=== PATIENT | male | born 1960 | race Caucasian/White ===

== ENCOUNTER 2022-07-29 20:41 | Inpatient (IN) | payer MEDICAID ==
[2022-07-29] MEDS ORDERED: Sodium Chloride 0.9% 10 ML Syringe FLUSH PRN (20:51)
[2022-07-29] MEDS ORDERED: Lactated Ringers 1,000 ML IV SCH ×2 (21:00→22:15)
[2022-07-29 21:05] LABS: BASOPHILS PERCENT AUTO 0.2 % (0.1-1.3); HEMATOCRIT 42.4 % (38.4-49.7); HEMOGLOBIN 14.7 g/dL (12.9-16.9); IMMATURE GRAN ABSOLUTE AUTO 0.07 K/uL (0.00-0.23); IMMATURE GRAN PERCENT AUTO 0.8 % (0.0-0.7); LYMPHOCYTES PERCENT AUTO 11.9 % (11.4-47.7); MEAN CORPUSCULAR HEMOGLOBIN 34.6 pg (31.6-35.5); MEAN CORPUSCULAR HGB CONC 34.7 g/dL (31.6-35.5); MEAN CORPUSCULAR VOLUME 99.8 fL (81.4-99.0); MONOCYTES ABSOLUTE AUTO 0.77 K/uL (0.20-0.90); MONOCYTES PERCENT AUTO 8.3 % (3.3-12.6); NEUTROPHILS ABSOLUTE AUTO 7.31 K/uL (1.0-7.6); NEUTROPHILS PERCENT AUTO 78.8 % (40.0-78.1); PLATELET COUNT,PLT 152 K/uL (130-375); RED BLOOD CELL COUNT 4.25 M/uL (4.14-5.76); WHITE BLOOD CELL COUNT,WBC 9.3 K/uL (3.2-11.0)
[2022-07-29 21:12] LABS: BASOPHILS ABSOLUTE AUTO 0.02 K/uL (0.00-0.10)
[2022-07-29 21:17] LABS: BICARBONATE,ARTERIAL 16.1 mmol/L (22.0-26.0); METHEMOGLOBIN 0.8 %; O2 SATURATION ARTERIAL 93.1 % (95.0-98.0); OXYHEMOGLOBIN 91.4 %
[2022-07-29 21:18] LABS: PCO2 ARTERIAL 19.4 mmHg (35.0-42.0)
[2022-07-29 21:26] LABS: A/G RATIO 0.5 (1.2-2.2); ALANINE AMINOTRANSFERASE,ALT 39 U/L (12-78); ALBUMIN 2.2 g/dL (3.4-5.0); ALKALINE PHOSPHATASE 78 U/L (46-116); ASPARTATE AMNIOTRANSFERASE,AST 45 U/L (15-37); BILIRUBIN TOTAL 2.9 mg/dL (0.2-1.0); BLOOD UREA NITROGEN,BUN 51 mg/dL (7-18); CALCIUM 7.6 mg/dL (8.5-10.1); CARBON DIOXIDE,CO2 18 mmol/L (21-32); CHLORIDE,CL 104 mmol/L (100-108); CREATININE 2.5 mg/dL (0.8-1.3); EST CRCL DRUG DOSING (CG) 30.08 mL/min; ESTIMATED GFR 28 mL/min (>60); GLUCOSE RANDOM 133 mg/dL (74-106); POTASSIUM,K 3.1 mmol/L (3.6-5.2); PROTEIN TOTAL,TP 6.5 g/dL (6.4-8.2); SODIUM,NA 141 mmol/L (140-148)
[2022-07-29 21:27] LABS: ANION GAP 22.1 mmol/L (5.0-14.0)
[2022-07-29 21:29] LABS: LACTIC ACID 2.8 mmol/L (0.4-2.0)
[2022-07-29] MEDS: Cefepime 2 GM in Sodium Chloride 0.9% 50 ML IV SCH (22:35)
[2022-07-29] MEDS ORDERED: Potassium Chloride 10 MEQ in Premix Bag 1 BAG IV ONE (22:54)
[2022-07-29] MEDS ORDERED: Sodium Chloride 0.9% 1,000 ML IV SCH (23:15)
[2022-07-30 06:48] LABS: APPEARANCE,URINE SLIGHTLY CLOUDY (CLEAR); BILIRUBIN,URINE LARGE (NEGATIVE); COLOR,URINE BROWN (YELLOW); GLUCOSE,URINE 100 mg/dL (NEGATIVE); KETONES,URINE 15 mg/dL (NEGATIVE); LEUKOCYTE ESTERASE,URINE NEGATIVE (NEGATIVE); NITRITE,URINE POSITIVE (NEGATIVE); OCCULT BLOOD,URINE NEGATIVE (NEGATIVE); PROTEIN,URINE TRACE mg/dL (NEGATIVE)
[2022-07-30 06:54] LABS: AMORPHOUS SEDIMENT,URINE NOT SEEN; BACTERIA,URINE NOT SEEN; EPITHELIAL CELLS,URINE FEW; MUCUS,URINE MANY; RBC,URINE 0-5 (0-5); WBC,URINE 0-5 (0-5)
[2022-07-30 10:47] LABS: BASE EXCESS ARTERIAL -2.4 mm/L; METHEMOGLOBIN 1.1 %; O2 SATURATION ARTERIAL 98.9 % (95.0-98.0); OXYHEMOGLOBIN 95.8 %; TOTAL HEMOGLOBIN 13.5 g/dL (13.5-18.0)
[2022-07-30 10:47] LABS: BASOPHILS ABSOLUTE AUTO 0.02 K/uL (0.00-0.10); BASOPHILS PERCENT AUTO 0.2 % (0.1-1.3); EOSINOPHILS ABSOLUTE AUTO 0.01 K/uL (0.00-0.40); EOSINOPHILS PERCENT AUTO 0.1 % (0.0-5.4); HEMATOCRIT 37.2 % (38.4-49.7); HEMOGLOBIN 12.8 g/dL (12.9-16.9); IMMATURE GRAN PERCENT AUTO 1.2 % (0.0-0.7); LYMPHOCYTES ABSOLUTE AUTO 0.77 K/uL (0.8-3.3); LYMPHOCYTES PERCENT AUTO 9.4 % (11.4-47.7); MEAN CORPUSCULAR HEMOGLOBIN 34.3 pg (31.6-35.5); MEAN CORPUSCULAR HGB CONC 34.4 g/dL (31.6-35.5); MEAN CORPUSCULAR VOLUME 99.7 fL (81.4-99.0); MONOCYTES ABSOLUTE AUTO 0.68 K/uL (0.20-0.90); MONOCYTES PERCENT AUTO 8.3 % (3.3-12.6); NEUTROPHILS ABSOLUTE AUTO 6.61 K/uL (1.0-7.6); NEUTROPHILS PERCENT AUTO 80.8 % (40.0-78.1); PLATELET COUNT,PLT 123 K/uL (130-375); RED BLOOD CELL COUNT 3.73 M/uL (4.14-5.76); WHITE BLOOD CELL COUNT,WBC 8.2 K/uL (3.2-11.0)
[2022-07-30 10:50] LABS: PCO2 ARTERIAL 17.4 mmHg (35.0-42.0)
[2022-07-30 11:10] LABS: A/G RATIO 0.5 (1.2-2.2); ALANINE AMINOTRANSFERASE,ALT 33 U/L (12-78); ALBUMIN 1.9 g/dL (3.4-5.0); ALKALINE PHOSPHATASE 63 U/L (46-116); ASPARTATE AMNIOTRANSFERASE,AST 36 U/L (15-37); BILIRUBIN TOTAL 2.5 mg/dL (0.2-1.0); BLOOD UREA NITROGEN,BUN 54 mg/dL (7-18); C-REACTIVE PROTEIN 1.26 mg/dL (0.0-0.3); CALCIUM 7.5 mg/dL (8.5-10.1); CARBON DIOXIDE,CO2 18 mmol/L (21-32); CHLORIDE,CL 106 mmol/L (100-108); CREATININE 2.3 mg/dL (0.8-1.3); EST CRCL DRUG DOSING (CG) 32.27 mL/min; ESTIMATED GFR 31 mL/min (>60); GLUCOSE RANDOM 125 mg/dL (74-106); MAGNESIUM 1.8 mg/dL (1.8-2.4); POTASSIUM,K 3.1 mmol/L (3.6-5.2); PROTEIN TOTAL,TP 5.6 g/dL (6.4-8.2); SODIUM,NA 142 mmol/L (140-148)
[2022-07-30 11:11] LABS: ANION GAP 21.1 mmol/L (5.0-14.0)
[2022-07-30] MEDS ORDERED: Potassium Chloride 10 MEQ in Premix Bag 1 BAG IV SCH (12:00)
[2022-07-30] MEDS ORDERED: Potassium Chloride 20 MEQ Tab.ER PO ONE (12:00)
[2022-07-30 12:09] LABS: INR 1.1; PROTHROMBIN TIME 10.8 sec (9.2-10.6)
[2022-07-30] MEDS: Thiamine 100 MG Tab PO SCH (12:34)
[2022-07-30] MEDS ORDERED: MVI, Adult with Vitamin K 10 ML, Thiamine 100 MG, Folic Acid 1 MG, Magnesium Sulfate 2 ... IV ONE ×5 (13:00)
[2022-07-30] MEDS: Folic Acid 1 MG Tab PO SCH (13:00)
[2022-07-30] MEDS ORDERED: Sodium Chloride 0.9% 10 ML Syringe FLUSH PRN (13:16)
[2022-07-30] MEDS ORDERED: Sodium Chloride 0.9% 1,000 ML IV SCH (13:16)
[2022-07-30] MEDS ORDERED: Ondansetron 4 MG/2 ML SDV IV PRN (13:16)
[2022-07-30] MEDS ORDERED: Acetaminophen 325 MG Tab PO PRN (13:16)
[2022-07-30] MEDS: Cefepime 2 GM in Sodium Chloride 0.9% 50 ML IV SCH (13:27)
[2022-07-30] MEDS ORDERED: Enoxaparin 30 MG/0.3 ML Syringe SUBCUT SCH (14:00)
[2022-07-30] MEDS: Meropenem 1 GM in Sodium Chloride 0.9% 100 ML IV SCH (14:04)
[2022-07-30] MEDS: Potassium Chloride 10 MEQ in Premix Bag 1 BAG IV SCH ×3 (14:37→16:36)
[2022-07-31] MEDS ORDERED: Sodium Chloride 0.9% 500 ML IV ONE (01:18)
[2022-07-31] MEDS: Meropenem 1 GM in Sodium Chloride 0.9% 100 ML IV SCH (01:21)
[2022-07-31] MEDS ORDERED: Norepinephrine Bit/D5W Premix 250 ML ONE (03:42)
[2022-07-31] MEDS ORDERED: Norepinephrine Bit/D5W Premix 4 MG in Premix Bag 1 BAG IV SCH (04:00)
[2022-07-31 04:45] LABS: BICARBONATE,ARTERIAL 20.3 mmol/L (22.0-26.0); CARBOXYHEMOGLOBIN 1.4 % (0.0-1.6); METHEMOGLOBIN 0.3 %; O2 SATURATION ARTERIAL 96.1 % (95.0-98.0); OXYHEMOGLOBIN 94.5 %; PCO2 ARTERIAL 26.8 mmHg (35.0-42.0); PO2 ARTERIAL 82.2 mmHg (75.0-100.0); TOTAL HEMOGLOBIN 8.6 g/dL (13.5-18.0)
[2022-07-31 05:10] LABS: A/G RATIO 0.5 (1.2-2.2); ALANINE AMINOTRANSFERASE,ALT 22 U/L (12-78); ALBUMIN 1.3 g/dL (3.4-5.0); ALKALINE PHOSPHATASE 43 U/L (46-116); ASPARTATE AMNIOTRANSFERASE,AST 23 U/L (15-37); BILIRUBIN TOTAL 1.5 mg/dL (0.2-1.0); BLOOD UREA NITROGEN,BUN 71 mg/dL (7-18); CARBON DIOXIDE,CO2 21 mmol/L (21-32); CHLORIDE,CL 115 mmol/L (100-108); CREATININE 1.9 mg/dL (0.8-1.3); EST CRCL DRUG DOSING (CG) 38.38 mL/min; ESTIMATED GFR 39 mL/min (>60); GLUCOSE RANDOM 108 mg/dL (74-106); POTASSIUM,K 4.4 mmol/L (3.6-5.2); PROTEIN TOTAL,TP 3.9 g/dL (6.4-8.2); SODIUM,NA 146 mmol/L (140-148)
[2022-07-31 05:22] LABS: BASOPHILS PERCENT AUTO 0.1 % (0.1-1.3); EOSINOPHILS PERCENT AUTO 0.3 % (0.0-5.4); HEMATOCRIT 23.7 % (38.4-49.7); HEMOGLOBIN 7.6 g/dL (12.9-16.9); IMMATURE GRAN ABSOLUTE AUTO 0.08 K/uL (0.00-0.23); IMMATURE GRAN PERCENT AUTO 1.2 % (0.0-0.7); LYMPHOCYTES ABSOLUTE AUTO 1.05 K/uL (0.8-3.3); LYMPHOCYTES PERCENT AUTO 15.7 % (11.4-47.7); MEAN CORPUSCULAR HEMOGLOBIN 34.4 pg (31.6-35.5); MEAN CORPUSCULAR HGB CONC 32.1 g/dL (31.6-35.5); MEAN CORPUSCULAR VOLUME 107.2 fL (81.4-99.0); MONOCYTES ABSOLUTE AUTO 0.59 K/uL (0.20-0.90); MONOCYTES PERCENT AUTO 8.8 % (3.3-12.6); NEUTROPHILS ABSOLUTE AUTO 4.95 K/uL (1.0-7.6); NEUTROPHILS PERCENT AUTO 73.9 % (40.0-78.1); PLATELET COUNT,PLT 91 K/uL (130-375); RED BLOOD CELL COUNT 2.21 M/uL (4.14-5.76); WHITE BLOOD CELL COUNT,WBC 6.7 K/uL (3.2-11.0)
[2022-07-31 05:23] LABS: BASOPHILS ABSOLUTE AUTO 0.01 K/uL (0.00-0.10); EOSINOPHILS ABSOLUTE AUTO 0.02 K/uL (0.00-0.40)
[2022-07-31 05:24] LABS: ANION GAP 14.4 mmol/L (5.0-14.0)
[2022-07-31] MEDS ORDERED: Pantoprazole 80 MG in Sodium Chloride 0.9% 100 ML IV ONE (08:00)
[2022-07-31] MEDS ORDERED: Pantoprazole 80 MG in Sodium Chloride 0.9% 100 ML IV SCH (08:30)
[2022-07-31] MEDS ORDERED: Octreotide 500 MCG in Sodium Chloride 0.9% 497.5 ML IV SCH (09:00)
[2022-07-31] MEDS: Morphine 10 MG/0.5 ML Oral Syringe PO PRN ×5 (09:56→17:37)
[2022-07-31] MEDS: LORazepam ORAL Concentrate 1MG/0.5ML U/D PO PRN ×3 (10:32→18:36)
[2022-07-31] MEDS: LORazepam ORAL Concentrate 1MG/0.5ML U/D PO SCH ×3 (11:04→14:36)
[2022-07-31] MEDS: Folic Acid 1 MG Tab PO SCH (16:23)
[2022-07-31] MEDS: Thiamine 100 MG Tab PO SCH (16:23)
[2022-07-31] MEDS ORDERED: Scopolamine 1.5 MG Transdermal Patch TRDERM PRN (17:08)
[2022-07-31] MEDS: Atropine Sulfate Ophth 2 ML Drops SL PRN ×2 (17:37→18:38)
== END 2022-07-31 19:28 | disposition expired | DRG 871 ==
LOC: EDBD 20:41 → JP.ED 20:41 → JP.ICU 07-30 11:24 → JP.2SS 07-31 10:10
PROVIDERS: ADMIT Hospitalist; ATTEND Hospitalist
PROC: 3E03329 Introduction of Other Anti-infective into Peripheral Vein, Percutaneous Approach (ICD-10-PCS; principal; 2022-07-30)
PROC: 3E033XZ Introduction of Vasopressor into Peripheral Vein, Percutaneous Approach (ICD-10-PCS; 2022-07-31)
DX: A41.9 Sepsis, unspecified organism (principal); I85.01 Esophageal varices with bleeding; D62 Acute posthemorrhagic anemia; K92.2 Gastrointestinal hemorrhage, unspecified; N17.9 Acute kidney failure, unspecified; F10.131 Alcohol abuse with withdrawal delirium; E87.3 Alkalosis; Z20.822 Contact with and (suspected) exposure to COVID-19; Z51.5 Encounter for palliative care; J44.9 Chronic obstructive pulmonary disease, unspecified; G43.909 Migraine, unspecified, not intractable, without status migrainosus; K70.10 Alcoholic hepatitis without ascites; R94.31 Abnormal electrocardiogram [ECG] [EKG]; E86.0 Dehydration; R09.02 Hypoxemia; Z87.891 Personal history of nicotine dependence; Z79.899 Other long term (current) drug therapy
CPT/HCPCS: 36415; 36430; 36600; 71045; 71045-26; 74176; 80053; 81001; 82140; 82550; 82803; 83605; 83690; 83735; 84145; 85025; 85610; 86140; 86850; 86900; 86901; 86920; 86922; 87040; 87086; 93005; 93010; 96361; 96365; 96366; 96367; 96368; 99223; 99238; 99285-25; 99291; A9270-GY; J0692; J1650; J2185; J3370; J3411; J3475; J3480; J3490; J7030; J7040; J7050; J7120; P9016; U0002